=== PATIENT | male | born 1960 | race Caucasian/White ===

== ENCOUNTER 2016-06-16 13:11 | Emergency (ER) | payer OTHER | END 2016-06-16 15:06 | disposition home or self-care (01) | LOC: ER1 13:11 | DX: S50.02XA Contusion of left elbow, initial encounter (principal); W18.39XA Other fall on same level, initial encounter; Y92.009 Unspecified place in unspecified non-institutional (private) residence as the place of occurrence of the external cause | CPT/HCPCS: 73080; 99283 ==